=== PATIENT | female | born 1935 | race Hispanic/Latino ===

== ENCOUNTER → 2021-11-19 | Outpatient (CLI) | payer OTHER | END | disposition home or self-care (01) | LOC: RAH 10:19 | PROVIDERS: ATTEND Internal Medicine | DX: R13.10 Dysphagia, unspecified (principal); C83.09 Small cell B-cell lymphoma, extranodal and solid organ sites | CPT/HCPCS: 74230; 92611 ==

== ENCOUNTER → 2022-05-26 | Outpatient (CLI) | payer OTHER ==
[~2022-05-26] MED LIST: IOHEXOL-350 50ML VIAL IV ONE
== END | disposition home or self-care (01) ==
LOC: RAH 14:45
PROVIDERS: ATTEND Internal Medicine
DX: G31.89 Other specified degenerative diseases of nervous system (principal); R42 Dizziness and giddiness
CPT/HCPCS: 70470; Q9967

== ENCOUNTER → 2022-12-06 | Outpatient (CLI) | payer OTHER ==
[2022-12-06 22:21] VITALS: PULSE 58; RESP 20
[2022-12-06 23:02] VITALS: PULSE 65; RESP 20
[2022-12-06 23:30] VITALS: PULSE 68; RESP 20
[2022-12-07] VITALS (11 sets, daily range): PULSE 54–65; RESP 16–22
== END | disposition home or self-care (01) ==
LOC: SLP 20:29
PROVIDERS: ATTEND Internal Medicine
DX: G47.33 Obstructive sleep apnea (adult) (pediatric) (principal)
CPT/HCPCS: 95810

== ENCOUNTER → 2024-02-29 | Outpatient (CLI) | payer OTHER | END | disposition home or self-care (01) | LOC: SHCH 12:10 | PROVIDERS: ATTEND Internal Medicine Cardiovascular Disease | DX: I08.8 Other rheumatic multiple valve diseases (principal); R01.1 Cardiac murmur, unspecified | CPT/HCPCS: 93306; 93356 ==

== ENCOUNTER 2024-05-11 11:38 | Emergency (ER) | payer OTHER ==
[~2024-05-11] VITALS: Ht 160 cm; Wt 63.5 kg
--- NOTE | 2024-05-11 11:57 | NUR ---
[facility] CALLED WILL SEND OFFICER
--- NOTE | 2024-05-11 12:10 | NUR ---
D OFFICER CALLED BACK OUT OF THEIR JURISDICTION NUMBER FOR ANIMAL CONTROL PROVIDED [phone], OFFICER CALLED AND DISPATCHED
--- NOTE | 2024-05-11 12:59 | NUR ---
BERTHA MARR CONTACTED, STATED THEY WILL SEND OFFICER OUT TO MEET PT
--- NOTE | 2024-05-11 13:57 | NUR ---
OFFICERS CALLED BACK AGAIN THEY ARE DOING CHANGE OF SHIFT BUT WILL FOLLOW UP
[2024-05-11] MEDS ORDERED: AMOX1TAB16 PO (14:16)
--- NOTE | 2024-05-11 14:20 | ERN ---
General Chief Complaint: Animal Bite Stated Complaint: CAT BITE Time Seen by MD: 12:31 Time Seen by Midlevel: 12:31 Source: patient History of Present Illness Initial Comments Patient is an 88-year-old female presenting to the emergency department for a wound evaluation. Patient states she accidentally stepped on a stray cat and was bitten on the left foot. Patient immediately cleansed the area with hydrogen peroxide and soap and water. This morning she decided to report to the ER for further evaluation. She denies any other symptoms at this time. She is not up-to-date with the tetanus vaccination. Allergies: Coded Allergies: No Known Drug Allergies (Unverified Allergy, Intermediate, 05/11/24) Home Meds Active Scripts Amoxicillin/Potassium Clav (Amox Tr-K Clv 875-125 mg Tab) 875 Mg-125 Mg Tablet, 1 EACH PO BID for 7 Days, #14 TAB 0 Refills Prov:TAMAR SAN 05/11/24 Past Medical History Past Medical History: Diabetes-Type II, High Cholesterol, Hypertension Past Surgical History: Hysterectomy ROS Dictation CONSTITUTIONAL: Negative except for HPI HEAD/FACE: Negative except for HPI EENT: Negative except for HPI RESPIRATORY: Negative except for HPI GASTROINTESTINAL/ABDOMINAL: Negative except for HPI GENITOURINARY: Negative except for HPI MUSCULOSKELETAL: Negative except for HPI INTEGUMENTARY: Negative except for HPI NEUROLOGICAL/PSYCH: Negative except for HPI HEMATOLOGIC/LYMPHATIC: Negative except for HPI All Systems Negative, Except as noted above. 13 point review of systems assessed and all negative except for above. Physical Exam Physical Exam Dictation Vital Signs reviewed General Appearance: Alert, oriented x 3, no acute distress, well developed, nourished. Head and Face: non-traumatic. Eyes: PERRL, pink conjunctivas, eyelid no trauma, anterior chamber with arcus senilis. Ears: Pinnas intact and no signs of trauma or erythema ear canals clear and no discharge TM no erythema Nose: No discharge, no bleeding. Oropharynx: Mouth normal, tongue pink, pharynx clear,no erythema, tonsils no exudates, no abscesses noted, mucous membrane moist Neck: Supple, non-tender, no thyromegaly, no masses, no JVD, no bruits Breast:Deferred Chest:No tenderness, no crepitus, no paradoxical movement, no retractions Lungs:Clear, well-ventilated, symmetric, no rales, no wheezing, no rhonchi, no stridor, good breath sounds bilaterally Heart: Regular rate, regular rhythm, no murmur, no gallops Vascular: no peripheral edema, Abdomen: Soft, positive bowel sounds, nondistended, no guarding, nontender, no rebound, no masses no hepatomegaly, no splenomegaly, no Ibarra's sign, no hernias. Rectal: Deferred Genital: Deferred Neurological: Normal speech, motor function intact, sensory function intact Musculoskeletal: Neck nontender, full range of motion, back nontender, full range of motion, Extremities: nontender, full range of motion Skin: Color pink, dry, no turgor, no rash, no lacerations, no abrasions, no contusions. Lymphatic: Deferred MDM MDM: Patient is an 88-year-old female presenting to the emergency department for a wound evaluation. Patient states she accidentally stepped on a stray cat and was bitten on the left foot. Patient immediately cleansed the area with hydrogen peroxide and soap and water. This morning she decided to report to the ER for further evaluation. She denies any other symptoms at this time. She is not up-to-date with the tetanus vaccination. On physical examination there are four small puncture wounds to the left medial foot. There was no surrounding erythema, induration, or drainable abscess. No need for imaging or suture repair at this time. Patient was given Rocephin and tetanus in the ER and will be discharged home with Augmentin Differential diagnosis: Cat bite, bug bite, cellulitis There are no social concerns with this patient. Prescription drug management Prescriptions will include: Augmentin Medical management and examination interpretation discussions were had by me with other qualified healthcare professionals as indicated for the patient's care. ED Course Orders Procedure Category Date Status Time Tetanus,Diphtheria PHA 05/11/24 In Process Tox [Adult] (Diphther 14:30 Ceftriaxone 1g Vial PHA 05/11/24 In Process (Rocephine 1g Inj) 14:30 Current Medications Medications (Trade) Dose Ordered Sig/Zahida Route PRN Reason Start Time Stop Time Status Last Admin Dose Admin Ceftriaxone Sodium (ROCEphine 1G INJ) 1 gm ONCE ONCE IM 05/11/24 14:30 05/11/24 14:31 Tetanus/ Diphtheria Toxoids Adsorbed (DiphthERIA-teTANUS TOXOID [ADULT]/ DECAVAC) 0.5 ml ONCE ONCE IM 05/11/24 14:30 05/11/24 14:31 Vital Signs Date Time Temp Pulse Resp B/P (MAP) Pulse Ox O2 Delivery O2 Flow Rate FiO2 05/11/24 13:00 97.9 57 20 168/57 99 Room Air* 0 21 05/11/24 11:57 97.9 57 20 168/57 99 Room Air 0 DX & DISP Disposition: Discharge Departure Impression: Primary Impression: Cat bite of foot Condition: Stable Scripts Amoxicillin/Potassium Clav (Amox Tr-K Clv 875-125 mg Tab) 875 Mg-125 Mg Tablet 1 EACH PO BID for 7 Days, #14 TAB 0 Refills Prov: TAMAR SAN 05/11/24 Referrals: JOHAN AGUILAR MD (PCP) I have reviewed the case, and I agree with, Diagnosis and Plan I performed the substantive portion of the visit. I have reviewed and personally made and approve the management plan that is documented in the note by myself or the ROXANNA. I acknowledge for responsibility for the patient's management plan. TAMAR SAN May 11, 2024 14:20
[2024-05-11] MEDS: cefTRIAXone 1G VIAL IM ONE (14:33)
[2024-05-11] MEDS: teTANUS/diphthERIA TOXOID [ADULT] 0.5 ML VIAL IM ONE (14:34)
[2024-05-11 14:40] VITALS: BP 142/62; PULSE 64; RESP 20; TEMP 97.9; O2SAT 99
== END 2024-05-11 14:42 | disposition home or self-care (01) ==
LOC: EDH 11:38
DX: S91.352A Open bite, left foot, initial encounter (principal); E11.9 Type 2 diabetes mellitus without complications; E78.00 Pure hypercholesterolemia, unspecified; I10 Essential (primary) hypertension; Z90.710 Acquired absence of both cervix and uterus; W55.01XA Bitten by cat, initial encounter; Y93.89 Activity, other specified; Y92.89 Other specified places as the place of occurrence of the external cause; Y99.8 Other external cause status
CPT/HCPCS: 99284; 90714; 96372; 90471; J0696

== ENCOUNTER → 2025-03-15 | Outpatient (CLI) | payer OTHER ==
[~2025-03-15] MED LIST changes: +AMOX1TAB16 PO; -IOHEXOL-350 50ML VIAL IV ONE; +IOHEXOL-350 75 ML VIAL IV ONE
--- NOTE | 2025-03-15 16:22 | HMCIMG ---
EXAM: CT CHEST PULMONARY EMBOLISM PROTOCOL WITH INTRAVENOUS CONTRAST Technique: Helical computed tomography of the chest with axial images and multiplanar reformations in the coronal and sagittal planes; standard soft tissue and lung reconstructions were generated. CTDIvol 69.0 mGy; DLP 422.3 mGy???cm. Contrast: Standard dose of intravenous contrast administered. Clinical Information: Hemoptysis. Findings: Soft tissues: No soft-tissue mass or focal inflammatory change is identified. Lungs and large airways: Tracheobronchial tree is patent; no pulmonary nodules or focal airspace infiltrates are identified; background aeration is preserved. Pleura: No pleural effusion; no pneumothorax. Heart and pericardium: Mild cardiomegaly; no pericardial effusion; severe coronary artery calcifications are present. Aorta: Ascending/proximal aorta measures up to 4.0 cm (mild dilatation/ectasia) with moderate atherosclerotic calcifications; no aneurysm or acute aortic abnormality is identified. Pulmonary arteries: Opacification is adequate to the subsegmental level; no filling defects are identified to suggest pulmonary embolism. Lymph nodes: No enlarged thoracic lymph nodes are identified. Mediastinum and ean: No mediastinal mass; normal contour of mediastinal structures. Chest wall and lower neck: No abnormality identified. Bones/joints: No acute osseous fracture is seen; degenerative changes are present in the thoracic spine. Upper abdomen: No acute abnormality is identified within the field of view; a simple cyst in the right kidney measures 4.7 cm. Impression:1. No pulmonary embolism; contrast opacification is adequate to the subsegmental level. 2. Mild cardiomegaly with severe coronary artery calcifications???correlate with cardiovascular risk assessment and consider nonurgent cardiology follow-up. 3. Ascending/proximal aorta measures up to 4.0 cm (mild ectasia) with moderate aortic atherosclerosis???recommend routine imaging surveillance per clinical guidelines. 4. No pleural effusion, pneumothorax, or focal pulmonary consolidation. 5. Incidental simple right renal cyst measuring 4.7 cm within the imaged upper abdomen; no dedicated follow-up required if sonographically simple and asymptomatic. /[place]
== END | disposition home or self-care (01) ==
LOC: RAH 12:46
PROVIDERS: ATTEND Internal Medicine
DX: I25.10 Atherosclerotic heart disease of native coronary artery without angina pectoris (principal); I51.7 Cardiomegaly; I77.810 Thoracic aortic ectasia; I70.0 Atherosclerosis of aorta; M47.814 Spondylosis without myelopathy or radiculopathy, thoracic region; N28.1 Cyst of kidney, acquired; R04.2 Hemoptysis
CPT/HCPCS: 71270; 83880; 85378; 36415; Q9967

== ENCOUNTER → 2025-03-26 | Outpatient (CLI) | payer OTHER ==
[~2025-03-26] MED LIST changes: -IOHEXOL-350 75 ML VIAL IV ONE
--- NOTE | 2025-03-27 05:48 | HMCIMG ---
EXAM: CR Chest, 1 views. CLINICAL HISTORY: Cough. COMPARISON: None provided. FINDINGS: The lungs show no infiltrate or other acute findings. No pleural effusion or pneumothorax. Cardiomegaly is noted. Atherosclerotic aortic calcification is noted. No acute osseous abnormality. IMPRESSION: Cardiomegaly is noted. Atherosclerotic aortic calcification is noted. /Cable
== END | disposition home or self-care (01) ==
LOC: RAH 15:55
PROVIDERS: ATTEND Nurse Practitioner Family
DX: I51.7 Cardiomegaly (principal); I70.0 Atherosclerosis of aorta; R04.2 Hemoptysis
CPT/HCPCS: 71046